=== PATIENT | male | born 1935 | race Caucasian/White ===

== ENCOUNTER → 2016-07-05 | Outpatient (CLI) | payer MEDICARE | END | disposition home or self-care (01) | LOC: CFH 07:34 | PROVIDERS: ATTEND Internal Medicine | DX: K22.4 Dyskinesia of esophagus (principal); K44.9 Diaphragmatic hernia without obstruction or gangrene | CPT/HCPCS: 74220 ==

== ENCOUNTER 2018-01-04 13:27 | Emergency (ER) | payer MEDICARE ==
[~2018-01-04] VITALS: Ht 170.2 cm; Wt 64.7 kg
[2018-01-04 14:27] LABS: BASOPHILS # (AUTO) 0.02 x10^3/uL (0-0.1); BASOPHILS % (AUTO) 0 % (0-1); EOSINOPHILS # (AUTO) 0.11 x10^3/uL (0-0.4); EOSINOPHILS % (AUTO) 2 % (1-7); LYMPHOCYTES # (AUTO) 1.68 x10^3/uL (1-3.4); LYMPHOCYTES % (AUTO) 31 % (22-44); MD NO; MEAN CORPUSCULAR HGB CONC 33.8 g/dL (33.2-36.2); MEAN CORPUSCULAR VOLUME 85.7 fL (81-97); MEAN PLATELET VOLUME 7.8 fL (7.4-10.4); MONOCYTES # (AUTO) 0.49 x10^3/uL (0.2-0.8); MONOCYTES % (AUTO) 9 % (2-9); NEUTROPHILS # (AUTO) 3.22 x10^3/uL (1.8-6.8); NEUTROPHILS % (AUTO) 58 % (42-75); PLATELET COUNT 240 x10^3/uL (130-400); RED BLOOD COUNT 5.24 x10^6/uL (4.38-5.82)
[2018-01-04 14:38] LABS: ALBUMIN 3.8 g/dL (3.4-5.0); ANION GAP 9 mmol/L (5-15); CALCIUM 9.1 mg/dL (8.5-10.1); CHLORIDE 104 mmol/L (98-107); CREATININE 1.19 mg/dL (0.7-1.3)
[2018-01-04 14:41] LABS: ALANINE AMINOTRANSFERASE 31 U/L (12-78); ALKALINE PHOSPHATASE 47 U/L (45-117); BILIRUBIN,TOTAL 0.6 mg/dL (0.2-1.0)
[2018-01-04 14:42] LABS: INTERNATIONAL NORMALIZED RATIO 1.09 (0.93-1.1); PROTHROMBIN TIME 11.3 Seconds (9.6-11.5)
[2018-01-04 15:27] VITALS: BP 135/84
== END 2018-01-04 15:40 | disposition home or self-care (01) ==
LOC: ED 15:24
DX: R19.7 Diarrhea, unspecified (principal); I10 Essential (primary) hypertension
CPT/HCPCS: 36415; 80053; 85025; 85610; 99284

== ENCOUNTER 2018-05-04 09:32 | Emergency (ER) | payer MEDICARE ==
[~2018-05-04] VITALS: Ht 170.2 cm; Wt 62.5 kg
--- NOTE | 2018-05-04 10:43 | NUR ---
PT ATTEMPTED TO VOID BUT NOT ABLE TO. PT NOT ABLE TO HAVE BM EITHER. WAITING FOR LAB RESULTS.
[2018-05-04 10:53] LABS: MEAN CORPUSCULAR HEMOGLOBIN 28.3 pg (27.5-34.5); MEAN CORPUSCULAR HGB CONC 33.3 g/dL (33.2-36.2); MEAN PLATELET VOLUME 7.3 fL (7.4-10.4); PLATELET COUNT 419 x10^3/uL (130-400); RED BLOOD COUNT 5.05 x10^6/uL (4.38-5.82); RED CELL DISTRIBUTION WIDTH 13.7 % (9.4-14.8)
--- NOTE | 2018-05-04 11:01 | NUR ---
PT BLADDER SCANNED AND IT SHOWED [address] YUAN AWARE. WAITING FOR LABS.
[2018-05-04 11:03] LABS: ALANINE AMINOTRANSFERASE 23 U/L (12-78); ALBUMIN 3.6 g/dL (3.4-5.0); ANION GAP 8 mmol/L (5-15); CHLORIDE 102 mmol/L (98-107); CREATININE 2.24 mg/dL (0.7-1.3)
[2018-05-04 11:06] LABS: ALKALINE PHOSPHATASE 84 U/L (45-117); BILIRUBIN,TOTAL 0.4 mg/dL (0.2-1.0); TOTAL PROTEIN 7.7 g/dL (6.4-8.2)
[2018-05-04 11:08] LABS: MD YES
[2018-05-04 11:10] LABS: <PLATELET ESTIMATE> ADEQUATE; <PLT MORPHOLOGY> NORMAL PLT MORPH; <RBC MORPHOLOGY> NORMAL; LYMPHS% (MANUAL) 2 % (22-44); MONOS#(MANUAL) 0.99 x10^3/uL (0.3-2.7); MONOS% (MANUAL) 4 % (2-9); SEG#(MANUAL) 23.31 x10^3/uL (1.8-6.8); SEGS% (MANUAL) 94 % (42-75)
[2018-05-04] MEDS ORDERED: SODIUM CHLORIDE FLUSH 10ML SYR IVF ONE (11:30)
[2018-05-04] MEDS ORDERED: SODIUM CHLORIDE 0.9% 1,000ML IVBOLUS ONE (11:30)
--- NOTE | 2018-05-04 11:40 | NUR ---
FLUIDS RUNING AFTER IV STARTED. VSS. PT HAD ELEVATED CREATININE AND CO2 OF 18.
[2018-05-04 12:08] LABS: CULTURE INDICATED? YES; MICROSCOPIC INDICATED
[2018-05-04] MEDS ORDERED: SODIUM CHLORIDE 0.9% 1,000 ML IV ONE ×2 (13:34→15:22)
--- NOTE | 2018-05-04 13:41 | NUR ---
DR. YUAN AT BEDSIDE. PT TO HAVE CT AND POSSIBLY BE ADMITTED.
[2018-05-04] MEDS ORDERED: METRONIDAZOLE PMX 500MG/100ML 100 ML IVPB ONE (15:00)
[2018-05-04] MEDS ORDERED: CEFEPIME 2 GM in DEXTROSE 5% 100 ML IVPB ONE (15:00)
--- NOTE | 2018-05-04 15:00 | NUR ---
BLADE AT BEDSIDE. PT TO BE ADMITTED FOR MASSES IN ABDOMEN, DIVERTICULITIS, AND POSSIBLE PNEUMONIA.
[2018-05-04 15:30] VITALS: BP 121/75
[2018-05-04] MEDS ORDERED: SODIUM CHLORIDE FLUSH 10ML SYR IVF PRN (15:30)
[2018-05-04] MEDS ORDERED: SULF1TAB24 PO (16:04)
[2018-05-04] MEDS ORDERED: PHARMACY MAY ADJ FOR RENAL FX MC PRN (16:30)
[2018-05-04] MEDS ORDERED: ZOLPIDEM 5MG TABLET PO PRN (16:30)
[2018-05-04] MEDS ORDERED: ONDANSETRON ODT 4 MG PO PRN (16:30)
[2018-05-04] MEDS ORDERED: HYDROcodone/APAP 5/325 TABLET PO PRN (16:30)
[2018-05-04] MEDS ORDERED: morphine SULFATE 10 MG/ML, 1ML IVPush PRN (16:30)
[2018-05-04] MEDS ORDERED: ACETAMINOPHEN 325 MG TABLET PO PRN (16:30)
[2018-05-04] MEDS ORDERED: METRONIDAZOLE PMX 500MG/100ML 100 ML IV SCH (16:30)
[2018-05-04] MEDS ORDERED: TAMSULOSIN 0.4 MG CAP.ER.24H PO SCH (16:30)
[2018-05-04] MEDS ORDERED: SODIUM CHLORIDE 0.9% 1,000 ML IV SCH (16:30)
[2018-05-04] MEDS ORDERED: ONDANSETRON 2MG/ML, 2ML IVPush PRN (16:30)
[2018-05-04] MEDS ORDERED: HEPARIN 5,000 UNITS/ML, 1ML SQ SCH (16:30)
--- NOTE | 2018-05-04 16:40 | NUR ---
PT'S ADVISED EDT THAT HE WILL NOT STAY IN THE HOSPITAL. RN IN TO SPEAK WITH PT AND PT IS COMPLETELY DRESSED AND HOLDING HIS ARM OUT THAT HAS AN IV IN AND STATING, "TAKE IT OUT". UDAY HOWARD, CALLED REGARDING PT'S CHOICE TO LEAVE AMA. UDAY REQUESTING THAT RN ASK PT TO STAY FOR PALLIATIVE CARE CONSULT. THIS RN TO GO BACK IN AND DISCUSS WITH PT AND HIS .
--- NOTE | 2018-05-04 16:50 | NUR ---
PT REFUSING TO STAY IN HOSPITAL, STATES "I DON'T WANT TO BE ON AN ONCOLOGY FLOOR." THIS RN OFFERED THAT THE PT HAVE HIS ROOM CHANGED TO A MEDICAL FLOOR. PT CONTINUES TO REFUSE. RN REQUESTED THAT THE PT STAY JUST UNTIL OUR PALLIATIVE CARE TEAM CAN SEE HIM. PT REFUSED. THIS RN TO CALL AND UPDATE LEE FRYE.
--- NOTE | 2018-05-04 17:00 | NUR ---
Pt left AMA.
[2018-05-04] MEDS ORDERED: CEFD300C37 PO (17:25)
[2018-05-04] MEDS ORDERED: METR500T PO (17:25)
[2018-05-04] MEDS ORDERED: TAMS-11 PO (17:25)
[2018-05-05] MEDS ORDERED: DOCUSATE 100 MG CAPSULE PO SCH (09:00)
[2018-05-05] MEDS ORDERED: CEFTRIAXONE PMX 1GM/50ML 50 ML IV SCH (13:00)
== END 2018-05-04 17:26 | disposition left against medical advice (07) ==
LOC: ED 11:46 → UNDOADMIN 15:22 → EDIP 15:22 → ED 17:26
DX: K57.32 Diverticulitis of large intestine without perforation or abscess without bleeding (principal); J98.59 Other diseases of mediastinum, not elsewhere classified; R19.7 Diarrhea, unspecified
CPT/HCPCS: 36415; 71045; 74176; 80053; 81001; 83605; 83735; 84145; 85025; 87040; 87086; 96361; 96365; 99284; J7030

== ENCOUNTER 2018-06-07 08:40 | Inpatient (IN) | payer MEDICARE ==
[~2018-06-07] VITALS: Ht 170.2 cm; Wt 66.7 kg
[~2018-06-07 08:40] MED LIST: CEFD300C37 PO; METR500T PO; SULF1TAB24 PO; TAMS-11 PO
[2018-06-07 09:20] LABS: BASOPHILS # (AUTO) 0.02 x10^3/uL (0-0.1); BASOPHILS % (AUTO) 0 % (0-1); EOSINOPHILS # (AUTO) 0.01 x10^3/uL (0-0.4); EOSINOPHILS % (AUTO) 0 % (1-7); LYMPHOCYTES # (AUTO) 1.27 x10^3/uL (1-3.4); LYMPHOCYTES % (AUTO) 12 % (22-44); MD NO; MEAN CORPUSCULAR HEMOGLOBIN 27.8 pg (27.5-34.5); MEAN CORPUSCULAR HGB CONC 32.1 g/dL (33.2-36.2); MEAN CORPUSCULAR VOLUME 86.7 fL (81-97); MEAN PLATELET VOLUME 7.5 fL (7.4-10.4); MONOCYTES # (AUTO) 0.45 x10^3/uL (0.2-0.8); MONOCYTES % (AUTO) 4 % (2-9); NEUTROPHILS # (AUTO) 8.95 x10^3/uL (1.8-6.8); NEUTROPHILS % (AUTO) 84 % (42-75); PLATELET COUNT 190 x10^3/uL (130-400); RED BLOOD COUNT 5.06 x10^6/uL (4.38-5.82); RED CELL DISTRIBUTION WIDTH 16.7 % (9.4-14.8)
[2018-06-07 09:29] LABS: INTERNATIONAL NORMALIZED RATIO 1.17 (0.93-1.1); PROTHROMBIN TIME 12.2 Seconds (9.6-11.5)
[2018-06-07 09:32] LABS: ALBUMIN 3.4 g/dL (3.4-5.0); ANION GAP 6 mmol/L (5-15); CALCIUM 9.9 mg/dL (8.5-10.1); CHLORIDE 105 mmol/L (98-107)
[2018-06-07 09:37] LABS: CREATININE 1.15 mg/dL (0.7-1.3)
--- NOTE | 2018-06-07 09:50 | NUR ---
REPORT GIVEN TO HUMA DIANE
--- NOTE | 2018-06-07 10:08 | NUR ---
INSISTENT ON GETTING SOME FOOD FOR PT. AT THIS TIME PER MD OK FOR FOOD.
[2018-06-07] MEDS ORDERED: HEPARIN 5,000 UNITS/ML, 1ML IV ONE (11:00)
[2018-06-07] MEDS ORDERED: HEPARIN 5,000 UNITS/ML, 1ML ONE (11:39)
[2018-06-07] MEDS ORDERED: HEPARIN 25,000 UNITS/500ML PMX 500 ML ONE (11:39)
[2018-06-07] MEDS: HEPARIN 25,000 UNITS/500ML PMX 500 ML IV PRN (11:59)
--- NOTE | 2018-06-07 13:04 | NUR ---
TACO CAREY. Addendum: 06/07/18 at 1305 by DYLON LUNCH
[2018-06-07 14:14] LABS: TROPONIN I < 0.015 ng/mL (0.000-0.045)
--- NOTE | 2018-06-07 15:54 | NUR ---
REPORT FROM HUMA DIANE, AWAITING ADMISSION BED/ROOM. AT BS.
--- NOTE | 2018-06-07 17:12 | NUR ---
REPORT TO JOSE DIANE. PT TRANSPORTED TO FLOOR BY FLOORWORKER DISTRIBUTOR.
[2018-06-07 17:39] VITALS: BP 132/93
[2018-06-07 18:45] LABS: TROPONIN I < 0.015 ng/mL (0.000-0.045)
[2018-06-07 19:49] VITALS: BP 131/83
[2018-06-07] MEDS: LACTULOSE 10 GM/15 ML UDC PO SCH ×2 (19:57→20:01)
[2018-06-07] MEDS: HEPARIN 5,000 UNITS/ML, 1ML IV PRN (19:57)
[2018-06-07] MEDS: SODIUM CHLORIDE 0.9% 1,000 ML IV SCH (22:00)
[2018-06-08 02:00] LABS: BASOPHILS # (AUTO) 0.03 x10^3/uL (0-0.1); BASOPHILS % (AUTO) 0 % (0-1); EOSINOPHILS # (AUTO) 0.03 x10^3/uL (0-0.4); EOSINOPHILS % (AUTO) 0 % (1-7); LYMPHOCYTES # (AUTO) 1.89 x10^3/uL (1-3.4); LYMPHOCYTES % (AUTO) 25 % (22-44); MD NO; MEAN CORPUSCULAR HGB CONC 32.8 g/dL (33.2-36.2); MEAN CORPUSCULAR VOLUME 85.4 fL (81-97); MEAN PLATELET VOLUME 7.4 fL (7.4-10.4); MONOCYTES # (AUTO) 0.52 x10^3/uL (0.2-0.8); MONOCYTES % (AUTO) 7 % (2-9); NEUTROPHILS # (AUTO) 5.02 x10^3/uL (1.8-6.8); NEUTROPHILS % (AUTO) 67 % (42-75); PLATELET COUNT 161 x10^3/uL (130-400); RED BLOOD COUNT 4.39 x10^6/uL (4.38-5.82); RED CELL DISTRIBUTION WIDTH 16.3 % (9.4-14.8)
[2018-06-08 02:09] LABS: ALBUMIN 2.7 g/dL (3.4-5.0); ANION GAP 6 mmol/L (5-15); CALCIUM 8.3 mg/dL (8.5-10.1); CHLORIDE 107 mmol/L (98-107)
[2018-06-08 02:12] LABS: ALANINE AMINOTRANSFERASE 19 U/L (12-78); ALKALINE PHOSPHATASE 54 U/L (45-117); BILIRUBIN,TOTAL 0.7 mg/dL (0.2-1.0); CREATININE 1.02 mg/dL (0.7-1.3); TOTAL PROTEIN 5.3 g/dL (6.4-8.2)
[2018-06-08 02:21] VITALS: BP 130/78
[2018-06-08 06:50] VITALS: BP 162/89
[2018-06-08] MEDS: PANTOPROZOLE 40MG TABLET PO SCH (07:30)
[2018-06-08] MEDS: LACTULOSE 10 GM/15 ML UDC PO SCH ×2 (09:00→20:01)
[2018-06-08] MEDS ORDERED: MIDAZOLAM 1 MG/ML, 5ML ONE (10:50)
[2018-06-08] MEDS ORDERED: FLUMAZENIL 0.1 MG/1 ML, 5ML ONE (10:50)
[2018-06-08] MEDS ORDERED: FENTANYL PF 100 MCG/2ML ONE (10:50)
[2018-06-08] MEDS ORDERED: NALOXONE 1 MG/ML, 2ML ONE (10:50)
[2018-06-08] MEDS: HEPARIN 5,000 UNITS/ML, 1ML IV PRN ×2 (14:01→20:58)
[2018-06-08 14:05] VITALS: BP 153/92
[2018-06-08 19:10] VITALS: BP 135/88
[2018-06-08] MEDS: SODIUM CHLORIDE 0.9% 1,000 ML IV SCH (20:00)
[2018-06-09] MEDS: HEPARIN 25,000 UNITS/500ML PMX 500 ML IV PRN ×2 (01:03→23:53)
[2018-06-09 03:13] VITALS: BP 112/77
[2018-06-09] MEDS: HEPARIN 5,000 UNITS/ML, 1ML IV PRN (04:22)
[2018-06-09 09:29] LABS: BASOPHILS # (AUTO) 0.02 x10^3/uL (0-0.1); BASOPHILS % (AUTO) 0 % (0-1); EOSINOPHILS # (AUTO) 0.06 x10^3/uL (0-0.4); EOSINOPHILS % (AUTO) 1 % (1-7); LYMPHOCYTES # (AUTO) 1.46 x10^3/uL (1-3.4); LYMPHOCYTES % (AUTO) 23 % (22-44); MD NO; MEAN CORPUSCULAR HEMOGLOBIN 28.2 pg (27.5-34.5); MEAN CORPUSCULAR HGB CONC 32.6 g/dL (33.2-36.2); MEAN CORPUSCULAR VOLUME 86.4 fL (81-97); MEAN PLATELET VOLUME 7.7 fL (7.4-10.4); MONOCYTES # (AUTO) 0.51 x10^3/uL (0.2-0.8); MONOCYTES % (AUTO) 8 % (2-9); NEUTROPHILS # (AUTO) 4.28 x10^3/uL (1.8-6.8); NEUTROPHILS % (AUTO) 68 % (42-75); PLATELET COUNT 151 x10^3/uL (130-400); RED BLOOD COUNT 4.48 x10^6/uL (4.38-5.82); RED CELL DISTRIBUTION WIDTH 16.6 % (9.4-14.8)
[2018-06-09] MEDS: LACTULOSE 10 GM/15 ML UDC PO SCH (09:32)
[2018-06-09] MEDS: PANTOPROZOLE 40MG TABLET PO SCH (09:32)
[2018-06-09 09:40] LABS: ALBUMIN 2.6 g/dL (3.4-5.0); ANION GAP 7 mmol/L (5-15); CALCIUM 8.1 mg/dL (8.5-10.1); CHLORIDE 107 mmol/L (98-107)
[2018-06-09 09:42] VITALS: BP 113/78
[2018-06-09 09:43] LABS: ALANINE AMINOTRANSFERASE 19 U/L (12-78); ALKALINE PHOSPHATASE 56 U/L (45-117); BILIRUBIN,TOTAL 0.7 mg/dL (0.2-1.0); CREATININE 1.04 mg/dL (0.7-1.3); TOTAL PROTEIN 5.5 g/dL (6.4-8.2)
[2018-06-09 14:00] VITALS: BP 120/84
[2018-06-10 00:18] VITALS: BP 133/87
[2018-06-10 05:45] LABS: BASOPHILS # (AUTO) 0.02 x10^3/uL (0-0.1); BASOPHILS % (AUTO) 0 % (0-1); EOSINOPHILS # (AUTO) 0.06 x10^3/uL (0-0.4); EOSINOPHILS % (AUTO) 1 % (1-7); LYMPHOCYTES # (AUTO) 1.49 x10^3/uL (1-3.4); LYMPHOCYTES % (AUTO) 28 % (22-44); MD NO; MEAN CORPUSCULAR HEMOGLOBIN 28.8 pg (27.5-34.5); MEAN CORPUSCULAR HGB CONC 33.5 g/dL (33.2-36.2); MEAN CORPUSCULAR VOLUME 86.1 fL (81-97); MONOCYTES # (AUTO) 0.46 x10^3/uL (0.2-0.8); MONOCYTES % (AUTO) 9 % (2-9); NEUTROPHILS # (AUTO) 3.36 x10^3/uL (1.8-6.8); NEUTROPHILS % (AUTO) 62 % (42-75); PLATELET COUNT 154 x10^3/uL (130-400); RED BLOOD COUNT 4.33 x10^6/uL (4.38-5.82); RED CELL DISTRIBUTION WIDTH 16.9 % (9.4-14.8)
[2018-06-10 05:50] LABS: CHLORIDE 111 mmol/L (98-107)
[2018-06-10 05:59] LABS: ALANINE AMINOTRANSFERASE 18 U/L (12-78); ALBUMIN 2.7 g/dL (3.4-5.0); ALKALINE PHOSPHATASE 51 U/L (45-117); ANION GAP 6 mmol/L (5-15); BILIRUBIN,TOTAL 0.5 mg/dL (0.2-1.0); CALCIUM 8.3 mg/dL (8.5-10.1); CREATININE 1.08 mg/dL (0.7-1.3); TOTAL PROTEIN 5.3 g/dL (6.4-8.2)
[2018-06-10] MEDS ORDERED: APIXABAN/HEPARIN MC SCH (07:00)
[2018-06-10] MEDS ORDERED: APIXABAN 5 MG TABLET PO SCH (09:00)
[2018-06-10 09:03] VITALS: BP 110/76
[2018-06-10] MEDS: PANTOPROZOLE 40MG TABLET PO SCH (09:53)
[2018-06-10] MEDS: SODIUM CHLORIDE 0.9% 1,000 ML IV SCH (09:56)
[2018-06-10] MEDS ORDERED: APIX5TAB PO ×2 (12:14)
[2018-06-10] MEDS ORDERED: PANT40TA5 PO (12:15)
== END 2018-06-10 13:11 | disposition home or self-care (01) | DRG 300 ==
LOC: ED 09:07 → EDIP 11:18 → 3NW 17:23
PROVIDERS: ADMIT Internal Medicine; ATTEND Internal Medicine
PROC: 0WJFXZZ Inspection of Abdominal Wall, External Approach (ICD-10-PCS; principal; 2018-06-08)
DX: I82.413 Acute embolism and thrombosis of femoral vein, bilateral (principal); D68.59 Other primary thrombophilia; I82.433 Acute embolism and thrombosis of popliteal vein, bilateral; I82.443 Acute embolism and thrombosis of tibial vein, bilateral; I82.890 Acute embolism and thrombosis of other specified veins; I10 Essential (primary) hypertension; H91.90 Unspecified hearing loss, unspecified ear; R19.00 Intra-abdominal and pelvic swelling, mass and lump, unspecified site; N40.0 Benign prostatic hyperplasia without lower urinary tract symptoms; Z82.0 Family history of epilepsy and other diseases of the nervous system; Z88.2 Allergy status to sulfonamides; Z88.6 Allergy status to analgesic agent; Z90.49 Acquired absence of other specified parts of digestive tract; Z90.79 Acquired absence of other genital organ(s); Z98.49 Cataract extraction status, unspecified eye
CPT/HCPCS: 0399T; 36415; 71250; 74176; 77012; 80048; 80053; 82040; 82378; 83615; 83880; 84484; 85025; 85520; 85610; 86301; 93005; 93306; 93970; 99156; 99157; 99285; G0103; G0378; J1644; J2250; J3010; J2310; J7030